=== PATIENT | male | born 1960 | race Two or more races ===

== ENCOUNTER 2018-05-02 14:20 | Emergency (ER) | payer MEDICAID, OTHER ==
[~2018-05-02] VITALS: Ht 182.9 cm; Wt 104.3 kg
[2018-05-02 15:28] LABS: Basophils # (auto) 0.1 uL; Eosinophils # (auto) 0.1 uL; Hemoglobin 16.7 g/dL (13.5-17.5); Lymphocytes # (auto) 1.9 uL; Lymphocytes % (auto) 29.6 % (10.0-50.0); Mean Corpuscular Hemoglobin 32.7 pg (28.0-32.0); Mean Corpuscular Volume 96.1 fL (80.0-100.0); Monocytes # (auto) 0.7 uL; Monocytes % (auto) 10.6 % (0.0-12.0); Neutrophils # (auto) 3.7 uL; Neutrophils % (auto) 56.8 % (37.0-80.0); Nucleated Red Blood Cells % 0.2 %; Platelet Count (auto) 208 10^3/uL (140-450); Red Cell Distribution Width 13.3 % (11.8-14.3); White Blood Cell 6.5 10^3/uL (4.4-10.8)
[2018-05-02 15:32] LABS: Albumin 3.9 g/dL (3.4-5.0); Anion Gap 6 (5-15); Aspartate Aminotransferase 23 U/L (15-37); BUN/Creatinine Ratio 12.6; Blood Urea Nitrogen 12 mg/dL (7-18); Calcium 8.4 mg/dL (8.5-10.1); Carbon Dioxide 27 mmol/L (21-32); Chloride 107 mmol/L (98-107); GFR African American 105 mL/min; GFR Non-African American 87 mL/min; Glucose 103 mg/dL (74-106); Magnesium 2.4 mg/dL (1.6-2.6); Potassium 3.8 mmol/L (3.5-5.1); Sodium 140 mmol/L (136-145)
[2018-05-02 15:37] LABS: Alanine Aminotransferase 30 U/L (16-61); Alkaline Phosphatase 138 U/L (45-117); Bilirubin, Total 0.4 mg/dL (0.2-1.0); Total Protein 7.4 g/dL (6.4-8.2)
[2018-05-02 19:40] LABS: Amylase 79 U/L (25-115); Lipase 104 U/L (73-393)
[2018-05-02 22:49] VITALS: BP 166/79
== END 2018-05-03 00:36 | disposition home or self-care (01) ==
LOC: ER 14:20
DX: K57.10 Diverticulosis of small intestine without perforation or abscess without bleeding (principal); E11.9 Type 2 diabetes mellitus without complications; I10 Essential (primary) hypertension
CPT/HCPCS: 36415; 71046; 74176; 76705; 80053; 82150; 83690; 83735; 84484; 85025; 93005

== ENCOUNTER 2019-05-20 05:15 | Emergency (ER) | payer MEDICAID ==
[~2019-05-20] VITALS: Ht 182.9 cm; Wt 104.3 kg
[2019-05-20] MEDS ORDERED: ACETAMINOPHEN 325 MG TAB PO ONE (06:45)
[2019-05-20 06:57] LABS: Urine Bacteria MANY /hpf (None Seen); Urine Blood 2+ /uL (Negative); Urine Mucus FEW (None Seen); Urine Specific Gravity 1.017 (1.001-1.035); Urine WBC 115 /hpf (0 - 3); Urine WBC Clumps PRESENT /hpf (None Seen)
[2019-05-20] MEDS ORDERED: LIDOCAINE 1% HCL (LOCAL ANESTH.) INJ 20ML MDV ONE (08:14)
[2019-05-20] MEDS ORDERED: cefTRIAXone SOD 1,000 MG VL IM ONE (08:15)
[2019-05-20 08:30] VITALS: BP 138/77
== END 2019-05-20 08:58 | disposition home or self-care (01) ==
LOC: ER 05:15
DX: N39.0 Urinary tract infection, site not specified (principal)
CPT/HCPCS: 81001; 96372; 99283; J0696; J2001

== ENCOUNTER 2019-12-17 01:33 | Inpatient (IN) | payer MEDICAID ==
[~2019-12-17] VITALS: Ht 182.9 cm; Wt 107.0 kg
[2019-12-17 03:11] LABS: Basophils # (auto) 0 10 ^3/uL (0-0.2); Basophils % (auto) 0.2 % (0.0-2.0); Eosinophils # (auto) 0 10 ^3/uL (0-0.8); Eosinophils % (auto) 0.1 % (0.0-7.0); Hemoglobin 17.3 g/dL (13.5-17.5); Lymphocytes # (auto) 2.5 10 ^3/uL (0.4-5.4); Lymphocytes % (auto) 19.8 % (10.0-50.0); Mean Corpuscular Hemoglobin 32.8 pg (28.0-32.0); Mean Corpuscular Hgb Conc. 34.7 g/dL (32.0-36.0); Mean Corpuscular Volume 94.6 fL (80.0-100.0); Monocytes # (auto) 1.3 10 ^3/uL (0-1.3); Monocytes % (auto) 10.4 % (0.0-12.0); Neutrophils # (auto) 8.8 10 ^3/uL (1.6-8.6); Neutrophils % (auto) 69.5 % (37.0-80.0); Nucleated Red Blood Cells % 0.3 %; Platelet Count (auto) 258 10^3/uL (140-450); Red Blood Cells 5.29 10^6/uL (4.5-5.90); Red Cell Distribution Width 13.6 % (11.8-14.3); White Blood Cell 12.7 10^3/uL (4.4-10.8)
[2019-12-17 03:29] LABS: INR 1.01 (0.9-1.15); Partial Thromboplastin Time 27.5 sec (23.0-31.2)
[2019-12-17 03:32] LABS: Albumin 4.4 g/dL (3.4-5.0); Calcium 9.3 mg/dL (8.5-10.1); Potassium 3.2 mmol/L (3.5-5.1)
[2019-12-17 03:35] LABS: Bilirubin, Total 0.8 mg/dL (0.2-1.0); Total Protein 7.9 g/dL (6.4-8.2)
[2019-12-17] MEDS ORDERED: MORPHINE SULFATE 4 MG/ML SYR/VIAL IV ONE (04:00)
[2019-12-17] MEDS ORDERED: PANTOPRAZOLE 40 MG/10 ML VIAL INJ IV ONE (04:00)
[2019-12-17] MEDS ORDERED: SODIUM CHLORIDE 0.9% 1,000 ML IV ONE (04:00)
[2019-12-17] MEDS ORDERED: ONDANSETRON HCL 4 MG/2 ML VIAL IV ONE (04:00)
[2019-12-17] MEDS ORDERED: ONDANSETRON HCL 4 MG/2 ML VIAL IV PRN (07:00)
[2019-12-17] MEDS ORDERED: cloNIDine HCL 0.1 MG TAB PO PRN (07:00)
[2019-12-17] MEDS ORDERED: SODIUM CHLORIDE 0.9% 1,000 ML IV SCH (07:00)
[2019-12-17] MEDS ORDERED: MORPHINE SULFATE 4 MG/ML SYR/VIAL IV PRN (07:00)
[2019-12-17] MEDS ORDERED: DEXTROSE (50%) 50ML SYRG IV PRN (07:00)
[2019-12-17] MEDS: cefTRIAXone 1GM/50ML D5W 50 ML IV SCH (09:20)
[2019-12-17] MEDS ORDERED: LISINOPRIL 20 MG TAB PO SCH (10:00)
[2019-12-17] MEDS ORDERED: PANTOPRAZOLE 40 MG/10 ML VIAL INJ IV SCH (10:00)
[2019-12-17] MEDS: dilTIAZem HCL 180MG ER CAP PO SCH (10:30)
[2019-12-17] MEDS ORDERED: CHOL400T17 PO (10:52)
[2019-12-17] MEDS ORDERED: CLON0.2T PO (10:52)
[2019-12-17] MEDS ORDERED: LISI40TA11 PO (10:52)
[2019-12-17] MEDS ORDERED: ESOM20CA70 PO (10:52)
[2019-12-17] MEDS ORDERED: AMIT100T2 PO (10:52)
[2019-12-17] MEDS ORDERED: IBUP800T24 PO (10:52)
[2019-12-17] MEDS ORDERED: DILT-40 PO (10:52)
[2019-12-17] MEDS ORDERED: cloNIDine HCL 0.1 MG TAB PO ONE (11:00)
[2019-12-17] MEDS: ACCU-CHEK COMFORT CURVE STRIP VI SCH ×3 (11:30→23:08)
[2019-12-17] MEDS: InsuLIN REG 1unit/0.01ml Soln (100units/ml) SC SCH ×3 (11:30→23:08)
[2019-12-17] MEDS: metroNIDAZOLE 500MG/100ML 100 ML IV SCH ×2 (15:08→21:26)
[2019-12-17] MEDS ORDERED: POTASSIUM CHL 20 Meq TABLET PO ONE (16:00)
[2019-12-17 18:21] VITALS: BP 148/50
[2019-12-17 18:28] VITALS: BP 148/50
--- NOTE | 2019-12-17 18:46 | NUR ---
RECEIVED PT FROM ER TO ROOM 216 B AT 1807. A/O X 4, VSS. DENIES PAIN. CLEAR LIQUID TRAY FOR DINNER. WILL CONTINUE TO MONITOR.
[2019-12-17 20:53] LABS: Urine Bacteria NONE SEEN /hpf (None Seen); Urine Blood Negative /uL (Negative); Urine Specific Gravity 1.005 (1.001-1.035); Urine WBC 4 /hpf (0 - 3)
[2019-12-17] MEDS ORDERED: ATORVASTATIN 20 MG TAB PO SCH (22:00)
[2019-12-17] MEDS ORDERED: AMITRIPTYLINE HCL 25 MG TAB PO SCH (22:00)
[2019-12-18 00:38] VITALS: BP 97/85
[2019-12-18 05:22] VITALS: BP 155/81
[2019-12-18] MEDS: metroNIDAZOLE 500MG/100ML 100 ML IV SCH (05:35)
[2019-12-18] MEDS: InsuLIN REG 1unit/0.01ml Soln (100units/ml) SC SCH ×2 (05:36→11:55)
[2019-12-18] MEDS: ACCU-CHEK COMFORT CURVE STRIP VI SCH ×2 (05:36→11:55)
[2019-12-18 06:51] LABS: Basophils # (auto) 0 10 ^3/uL (0-0.2); Basophils % (auto) 0.4 % (0.0-2.0); Eosinophils # (auto) 0.1 10 ^3/uL (0-0.8); Eosinophils % (auto) 1.6 % (0.0-7.0); Hematocrit 47.9 % (41.0-53.0); Hemoglobin 16.3 g/dL (13.5-17.5); Lymphocytes # (auto) 2.3 10 ^3/uL (0.4-5.4); Lymphocytes % (auto) 29.1 % (10.0-50.0); Mean Corpuscular Hemoglobin 32.9 pg (28.0-32.0); Mean Corpuscular Volume 96.7 fL (80.0-100.0); Monocytes # (auto) 0.7 10 ^3/uL (0-1.3); Monocytes % (auto) 8.7 % (0.0-12.0); Neutrophils # (auto) 4.8 10 ^3/uL (1.6-8.6); Neutrophils % (auto) 60.2 % (37.0-80.0); Platelet Count (auto) 201 10^3/uL (140-450); Red Blood Cells 4.95 10^6/uL (4.5-5.90); Red Cell Distribution Width 13.8 % (11.8-14.3); White Blood Cell 7.9 10^3/uL (4.4-10.8)
[2019-12-18 06:59] LABS: Potassium 3.3 mmol/L (3.5-5.1)
[2019-12-18 07:13] LABS: Albumin 3.4 g/dL (3.4-5.0); BUN/Creatinine Ratio 12.1; Bilirubin, Total 0.8 mg/dL (0.2-1.0); Calcium 8.4 mg/dL (8.5-10.1); Total Protein 6.2 g/dL (6.4-8.2)
[2019-12-18 09:00] VITALS: BP 150/88
[2019-12-18] MEDS ORDERED: POTASSIUM CHL 20 Meq TABLET PO ONE (09:15)
[2019-12-18] MEDS ORDERED: DOCU-94 PO (09:19)
[2019-12-18] MEDS ORDERED: METR500T14 PO (09:19)
[2019-12-18] MEDS ORDERED: CLON0.2T PO (09:19)
[2019-12-18] MEDS ORDERED: LEVO-28 PO (09:19)
[2019-12-18] MEDS ORDERED: MORPHINE SULF INJ 2 MG/ML SYRINGE 1ML IV PRN (09:30)
[2019-12-18] MEDS ORDERED: LISINOPRIL 20 MG TAB PO SCH (10:00)
[2019-12-18] MEDS ORDERED: PANTOPRAZOLE 40 MG TAB PO SCH (10:00)
[2019-12-18] MEDS ORDERED: cloNIDine HCL 0.1 MG TAB PO SCH ×2 (10:00)
[2019-12-18] MEDS: cefTRIAXone 1GM/50ML D5W 50 ML IV SCH (10:14)
[2019-12-18] MEDS: dilTIAZem HCL 180MG ER CAP PO SCH (10:18)
[2019-12-18 13:00] VITALS: BP 104/91
[2019-12-18 15:53] VITALS: BP 140/91
--- NOTE | 2019-12-18 17:35 | NUR ---
DISCHARGE INSTRUCTIONS GIVEN TO PT. VERBALIZED UNDERSTANDING. ALL APPROPRIATE PAPERWORK SIGNED. RX GIVEN TO PT FROM PHARMACY. PT INSTRUCTED TO FOLLOW UP WITH PCP AND SCHEDULE OUTPATIENT COLONOSCOPY IN 6-8 WEEKS. IV REMOVED. PT DISCHARGED HOME.
== END 2019-12-18 17:15 | disposition home or self-care (01) | DRG 244 ==
LOC: ER 01:33 → OVERFLOW 01:34 → CENTRAL 17:58
PROVIDERS: ADMIT Nurse Practitioner; ATTEND Internal Medicine
DX: K57.33 Diverticulitis of large intestine without perforation or abscess with bleeding (principal); K52.9 Noninfective gastroenteritis and colitis, unspecified; I10 Essential (primary) hypertension; E87.6 Hypokalemia; E11.9 Type 2 diabetes mellitus without complications; R65.10 Systemic inflammatory response syndrome (SIRS) of non-infectious origin without acute organ dysfunction; E66.9 Obesity, unspecified; Z79.899 Other long term (current) drug therapy; Z68.31 Body mass index [BMI] 31.0-31.9, adult
CPT/HCPCS: 36415; 74176; 80053; 81001; 82270; 82962; 85025; 85610; 85730; 86850; 86900; 86901; 93005; 96361; 96374; 96375; C9113; G0378; J0696; J2405; J3490

== ENCOUNTER 2023-12-05 23:10 | Emergency (ER) | payer MEDICAID ==
[~2023-12-05] VITALS: Ht 182.9 cm; Wt 115.7 kg
[~2023-12-05 23:10] MED LIST: AMIT100T6 PO; CHOL400T17 PO; CLON0.2T PO; DILT-40 PO; DOCU-94 PO; ESOM20CA70 PO; LEVO500T91 PO; LISI40TA16 PO; METR-344 PO
[2023-12-05 23:33] VITALS: TEMP 98.2
[2023-12-06] MEDS ORDERED: CEPH500C PO (02:20)
[2023-12-06 02:46] VITALS: BP 156/86; PULSE 76; RESP 20; O2SAT 97
== END 2023-12-06 03:13 | disposition home or self-care (01) ==
LOC: ER 23:10
DX: S61.214A Laceration without foreign body of right ring finger without damage to nail, initial encounter (principal); E78.5 Hyperlipidemia, unspecified; I10 Essential (primary) hypertension; Z98.890 Other specified postprocedural states; Z79.899 Other long term (current) drug therapy; X58.XXXA Exposure to other specified factors, initial encounter; Y93.89 Activity, other specified; Y92.89 Other specified places as the place of occurrence of the external cause; Y99.8 Other external cause status